=== PATIENT | female | born 1990 | race Caucasian/White ===

== ENCOUNTER 2025-06-27 14:07 | Emergency (ER) | payer OTHER ==
[2025-06-27] MEDS ORDERED: diphenhydrAMINE 50 MG/ML VIAL ONE (14:26)
[2025-06-27] MEDS ORDERED: Prochlorperazine 10 MG/2 ML VIAL ONE (14:26)
[2025-06-27] MEDS ORDERED: Ketorolac Tromethamine 30 MG (1 mL) VIAL ONE (14:26)
[2025-06-27] MEDS ORDERED: Dexamethasone 10 MG/ML VIAL ONE (14:27)
== END 2025-06-27 16:05 | disposition home or self-care (01) ==
LOC: MADERS 14:07
DX: G43.909 Migraine, unspecified, not intractable, without status migrainosus (principal)
CPT/HCPCS: 96374; 96375; J0780; J1100; J1200; J1885; J7030

== ENCOUNTER 2025-07-01 20:56 | Emergency (ER) | payer OTHER ==
[2025-07-01] MEDS ORDERED: Metoclopramide HCl 10 MG (2 mL) VIAL ONE (22:42)
[2025-07-01] MEDS ORDERED: Acetaminophen 500 MG TAB ONE (22:42)
[2025-07-01] MEDS ORDERED: Ketorolac Tromethamine 30 MG (1 mL) VIAL ONE (22:42)
[2025-07-01] MEDS ORDERED: diphenhydrAMINE 50 MG/ML VIAL ONE (23:09)
[2025-07-01] MEDS ORDERED: Magnesium 2 GM/50 ML BAG (IN WATER) ONE (23:10)
== END 2025-07-02 00:23 | disposition home or self-care (01) ==
LOC: MADERS 20:56
DX: G43.909 Migraine, unspecified, not intractable, without status migrainosus (principal); F19.90 Other psychoactive substance use, unspecified, uncomplicated
CPT/HCPCS: 96365; 96375; J1100; J1200; J1885; J2765; J3475; J7030